=== PATIENT | male | born 1955 | race Caucasian/White ===

== ENCOUNTER 2019-03-14 05:38 | Observation (INO) | payer BC, OTHER ==
[2019-03-14] MEDS ORDERED: ASPIRIN 81 MG CHEWABLE TABLETS PO ONE ×2 (06:18→09:07)
[2019-03-14] MEDS ORDERED: ASPIRIN 81 MG CHEWABLE TABLETS ONE ×2 (06:20→10:23)
[2019-03-14] MEDS ORDERED: NITROGLYCERIN SUBLINGUAL 1/150 0.4 MG TAB SL ONE ×2 (06:48→08:16)
--- NOTE | 2019-03-14 06:53 | PDOC ---
Attending Attestation - Resident Resident Name: Jovany Durant - ED Attending Attestation I have performed the following: I have examined & evaluated the patient, The case was reviewed & discussed with the resident, I agree w/resident's findings & plan, Exceptions are as noted - HPI HPI: 03/14/19 07:16 See resident HPI - Physicial Exam PE: 03/14/19 07:16 Agree with documented exam - Medical Decision Making 03/14/19 07:16 Moderately concerning but atypical cp story HEART 5 before troponin Eval for ACS f/u labs ekg non-ischemic dispo per clinical course, will need admission for ACS eval
[2019-03-14] MEDS ORDERED: NITROGLYCERIN SUBLINGUAL 1/150 0.4 MG TAB ONE ×2 (07:00→08:19)
--- NOTE | 2019-03-14 07:04 | PDOC ---
History of Present Illness - General Chief Complaint: Chest Pain Stated Complaint: CHEST PAIN Time Seen by Provider: 03/14/19 06:07 - History of Present Illness Initial Comments: 03/14/19 06:51 HPI: 63 y/o M with hx of HTN, HLD, pre-DM, obesity presenting with chest pain that started 4.5 hrs ago. Pain is midsternal with radiation to BL costal margins. Pain woke him from sleep. Pain is 6/10 and constant. He has never has this in the past. He took an excedrin with no relief. He initially thought it was GI in nature and went to the bathroom to urinate and have a BM, he also took Tums. His symptoms did no improve. He also reports dry heaving nausea with no emesis as well as SOB by the time he go to bed and diaphoresis. Patient denies fever, chills, palpitations, TORO, LH, dizziness, abd pain, abd pain. He reports [place] in his father after the age of 60. PMHx: as noted above ROS: as noted SHx: Denies tobacco use; nightly wine use; no rec drugs Allergies: NKDA ROS: GENERAL/CONSTITUTIONAL: No fever or chills. No weakness. HEAD, EYES, EARS, NOSE AND THROAT: No change in vision. No ear pain or discharge. No sore throat. CARDIOVASCULAR: +chest pain and shortness of breath RESPIRATORY: No cough, wheezing, or hemoptysis. GASTROINTESTINAL: +nausea; no vomiting, diarrhea or constipation. GENITOURINARY: No dysuria, frequency, or change in urination. MUSCULOSKELETAL: No joint or muscle swelling or pain. No neck or back pain. SKIN: No rash NEUROLOGIC: No headache, vertigo, loss of consciousness, or change in strength/ sensation. ENDOCRINE: No increased thirst. No abnormal weight change HEMATOLOGIC/LYMPHATIC: No anemia, easy bleeding, or history of blood clots. ALLERGIC/IMMUNOLOGIC: No hives or skin allergy. PE: GENERAL: Awake, alert, and fully oriented, no acute distress HEAD: No signs of trauma, normocephalic, atraumatic EYES: EOMI, sclera anicteric, conjunctiva clear ENT: Auricles normal inspection, hearing grossly normal, nares patent, oropharynx clear without exudates. Moist mucosa NECK: Normal ROM, no lymphadenopathy LUNGS: No increased work of breathing, symmetrical chest rise, clear to auscultation bilaterally, no wheezes, crackles or rhonchi HEART: Regular rate, regular rhythm, normal S1 and S2, no murmur, peripheral pulses 2+ and equal bilaterally. ABDOMEN: Soft, obese, nontender, normoactive bowel sounds. No guarding, no rebound. No masses. No CVAT MUSCULOSKELETAL: Normal inspection, FROM NEUROLOGICAL: Cranial nerves II through XII grossly intact. Normal speech, normal gait, no focal sensorimotor deficits SKIN: Warm, Dry, normal turgor, no rashes or lesions noted Past History - Past Medical History Allergies/Adverse Reactions: Allergies Allergy/AdvReac Type Severity Reaction Status Date / Time No Known Allergies Allergy Verified 03/14/19 06:02 Home Medications: Ambulatory Orders Alpha Lipoic Acid 100 mg PO DAILY 08/15/17 Aspirin [[place] Aspirin] 81 mg PO DAILY 08/15/17 Atorvastatin Ca [Lipitor] 20 mg PO HS 08/15/17 Docusate Sodium [Colace] 100 mg PO HS 08/15/17 Hydrochlorothiazide [Hctz -] 25 mg PO DAILY 08/15/17 Lisinopril [Prinivil -] 40 mg PO DAILY 08/15/17 Multivitamin [One Daily] 1 each PO DAILY 08/15/17 Anemia: No Asthma: No Cancer: No Cardiac Disorders: No CVA: No COPD: No CHF: No Dementia: No Diabetes: No GI Disorders: No Disorders: No HTN: Yes Hypercholesterolemia: Yes Liver Disease: No Seizures: No Thyroid Disease: No - Surgical History Abdominal Surgery: No Appendectomy: No Cardiac Surgery: No Cholecystectomy: No Lung Surgery: No Neurologic Surgery: No Orthopedic Surgery: No - Psycho Social/Smoking Cessation Hx Smoking History: Never smoked Hx Alcohol Use: Yes (Social) Drug/Substance Use Hx: No Substance Use Type: None Hx Substance Use Treatment: No *Physical Exam - Vital Signs Last Vital Signs Temp Pulse Resp BP Pulse Ox 98.8 F 64 20 156/84 100 03/14/19 05:40 03/14/19 05:40 03/14/19 05:40 03/14/19 05:40 03/14/19 05:40 Heart Score/ECG Review - History History: Moderately suspicious - Electrocardiogram EKG: Non specific repolarization disturbance - Age Age: 45-65 - Risk Factors Risk Factors Heart Score: Yes Hx Hypercholesterolemia, Yes Hx Hypertension, Yes Hx Diabetes, Yes Hx Obesity Based on the list above the patient has:: >/=3 risk factors or Hx atherosclerotic disease - Troponin Troponin: </= normal limit - Score Heart Score - Total: 5 ED Treatment Course - RADIOLOGY Radiology Studies Ordered: Category Date Time Status CHEST PA & LAT [RAD] Stat Radiology 03/14/19 06:47 Ordered - Medications Given in the ED: ED Medications Discontinued Medications Generic Name Dose Route Start Last Admin Trade Name Christiano PRN Reason Stop Dose Admin Aspirin 324 mg 03/14/19 06:18 03/14/19 06:23 Asa - PO 03/14/19 06:19 324 mg ONCE ONE Administration Medical Decision Making - Medical Decision Making 03/14/19 07:04 63 y/o M with hx of HTN, HLD, pre-DM, obesity presenting with chest pain that started 4.5 hrs ago that started with nausea, diaphoresis, and SOB. BP 156/84, AF. PE unremarkable. will workup for acs -cbc, cmp, mg, phos, bnp, coags, cardiac profile, ekg, cxr -aspirin, nitro SL 03/14/19 07:05 will signout to AM team to followup labs and admit for ACS workup Heart score 5 Discharge - Discharge Information Problems reviewed: Yes Clinical Impression/Diagnosis: Chest pain Qualifiers: Chest pain type: unspecified Qualified Code(s): R07.9 - Chest pain, unspecified Condition: Fair - Follow up/Referral - Patient Discharge Instructions - Post Discharge Activity
[2019-03-14 07:12] LABS: BASO % 0.2 % (0-2.0); EOS % 0.4 % (0-4.5); HEMATOCRIT 44.7 % (35.4-49); HEMOGLOBIN 15.5 GM/dL (11.7-16.9); LYMPH % 12.6 % (8-40); MCH 31.3 pg (25.7-33.7); MCHC 34.6 g/dl (32.0-35.9); MEAN CELL VOLUME 90.4 fl (80-96); MEAN PLT VOLUME 8.2 fl (7.5-11.1); MONO % 4.8 % (3.8-10.2); PLATELET COUNT 227 K/MM3 (134-434); RBC 4.95 M/mm3 (4.00-5.60); WHITE BLOOD COUNT 10.8 K/mm3 (4.0-10.0)
[2019-03-14 07:31] LABS: INR 0.87 (0.83-1.09); PROTHROMBIN TIME (PATIENT) 10.3 SEC (9.7-13.0)
--- NOTE | 2019-03-14 07:33 | PDOC ---
*Physical Exam - Vital Signs Last Vital Signs Temp Pulse Resp BP Pulse Ox 98.8 F 64 20 156/84 100 03/14/19 05:40 03/14/19 05:40 03/14/19 05:40 03/14/19 05:40 03/14/19 05:40 <Becky Glass - Last Filed: 03/14/19 08:22> - Vital Signs Last Vital Signs Temp Pulse Resp BP Pulse Ox 98.8 F 64 20 156/84 100 03/14/19 05:40 03/14/19 05:40 03/14/19 05:40 03/14/19 05:40 03/14/19 05:40 - Physical Exam 03/14/19 07:30 63 yo M with HTN, HLD, pre-DM, and obesity presents to the emergency department with chest pain that started 4.5 hours ago. Per the patient, it is located in the midsternum with radiation to the bilateral costal margins. I received sign out from AM team. Pending labs <MiguelFranck - Last Filed: 03/14/19 08:53> ED Treatment Course - LABORATORY CBC & Chemistry Diagram: 03/14/19 06:50 03/14/19 06:50 - ADDITIONAL ORDERS Additional order review: Laboratory Results 03/14/19 03/14/19 03/14/19 06:50 06:50 06:50 PT with INR 10.30 INR 0.87 PTT (Actin FS) 35.3 Sodium 137 Potassium 3.7 Chloride 103 Carbon Dioxide 30 Anion Gap 4 L BUN 21.0 H Creatinine 1.1 Est GFR (CKD-EPI)AfAm 82.37 Est GFR (CKD-EPI)NonAf 71.07 Random Glucose 150 H Calcium 9.7 Magnesium 2.0 Total Bilirubin 0.5 AST 14 L ALT 30 Alkaline Phosphatase 57 Creatine Kinase 97 Troponin I 0.02 B-Natriuretic Peptide 60.1 Total Protein 7.2 Albumin 4.4 03/14/19 06:50 RBC 4.95 MCV 90.4 MCHC 34.6 RDW 14.0 MPV 8.2 Neutrophils % 82.0 Lymphocytes % 12.6 Monocytes % 4.8 Eosinophils % 0.4 Basophils % 0.2 - Medications Given in the ED: ED Medications Discontinued Medications Generic Name Dose Route Start Last Admin Trade Name Freq PRN Reason Stop Dose Admin Aspirin 324 mg 03/14/19 06:18 03/14/19 06:23 Asa - PO 03/14/19 06:19 324 mg ONCE ONE Administration Nitroglycerin 0.4 mg 03/14/19 06:48 03/14/19 07:05 Nitrostat - SL 03/14/19 06:49 0.4 mg ONCE ONE Administration <Becky Glass - Last Filed: 03/14/19 08:22> - LABORATORY CBC & Chemistry Diagram: 03/14/19 06:50 03/14/19 06:50 - ADDITIONAL ORDERS Additional order review: 03/14/19 06:50 RBC 4.95 MCV 90.4 MCHC 34.6 RDW 14.0 MPV 8.2 Neutrophils % 82.0 Lymphocytes % 12.6 Monocytes % 4.8 Eosinophils % 0.4 Basophils % 0.2 - Medications Given in the ED: ED Medications Discontinued Medications Generic Name Dose Route Start Last Admin Trade Name Freq PRN Reason Stop Dose Admin Aspirin 324 mg 03/14/19 06:18 03/14/19 06:23 Asa - PO 03/14/19 06:19 324 mg ONCE ONE Administration Nitroglycerin 0.4 mg 03/14/19 06:48 03/14/19 07:05 Nitrostat - SL 03/14/19 06:49 0.4 mg ONCE ONE Administration <Franck Rivera - Last Filed: 03/14/19 08:53> Medical Decision Making - Medical Decision Making Patient was signed out from Dr. Stiles at 7:00 AM. In summary this is a 63-year- old male with hypertension, hyperlipidemia and diabetes presenting with sternal chest pain, received nitro and aspirin with some relief of pain currently at 3/ 10. Laboratory results are unremarkable, troponin is negative, LFTs and lipase are unremarkable, limited bedside ultrasound gallbladder negative for stones or evidence of cholecystitis, no Childers sign is elicited so unlikely to be biliary etiology elevated heart score of 5 so will require observation telemetry for rule out ACS , stress testing, medical management and cardiology evaluation as inpatient. 03/14/19 08:22 <Becky Glass - Last Filed: 03/14/19 08:22> - Medical Decision Making 03/14/19 08:16 Patient reported mild relief of pain after nitro administration. will order another dose of nitroglycerin. <Franck Rivera - Last Filed: 03/14/19 08:53> Discharge <Becky Glass - Last Filed: 03/14/19 08:22> - Discharge Information Problems reviewed: Yes <Franck Rivera - Last Filed: 03/14/19 08:53> - Discharge Information Clinical Impression/Diagnosis: Chest pain Qualifiers: Chest pain type: unspecified Qualified Code(s): R07.9 - Chest pain, unspecified Condition: Fair - Follow up/Referral Referrals: ON STAFF,NOT [Primary Care Provider] - - Patient Discharge Instructions - Post Discharge Activity
[2019-03-14 07:34] LABS: ACTIVATED PTT 35.3 SECONDS (25.2-36.5)
[2019-03-14 07:46] LABS: ALBUMIN 4.4 g/dl (3.4-5.0); BILIRUBIN,TOTAL 0.5 mg/dL (0.2-1); CALCIUM 9.7 mg/dL (8.5-10.1); CREATININE 1.1 mg/dL (0.55-1.3); POTASSIUM 3.7 mmol/L (3.5-5.1); TOT PROT 7.2 g/dl (6.4-8.2)
[2019-03-14 07:51] LABS: N-TERMINAL BNP 60.1 pg/ml (5-125)
[2019-03-14] MEDS ORDERED: SODIUM CHLORIDE 1,000 ML IV SCH (09:15)
--- NOTE | 2019-03-14 09:24 | HP ---
CHIEF COMPLAINT: chest pain PCP: Dr. Casey Salas ([place]) HISTORY OF PRESENT ILLNESS: Pt. is 63 y.o. M w/ PMHx. of HTN, HLD, Pre-DM, Hx. of JOCELYN (not on CPAP) and obesity presents for chest pain that woke him up from sleep around 2AM. Pt. states that the pain was 6/10 in severity (now 5/10) ad is constant with continuos (not radiating) extension along bilateral ribs. Pt. denies anything other than the SL nitroglycerin that improved the pain. Pt. at home tried taking Excedrin, urinating, defecating, drinking water and taking TUMs with no relief. Pt. states this has never happened before and deines ever having a stress test. Pt. states he recently saw his PCP for a check up and was started on MEtformin for Pre-DM. Pt. did not recall is A1c. In the ER Pt. was given SL Nitroglycerin and ASA to some relief (3/10). Pt. endorses dry-heaving nausea at home associated with diaporesis for ~5min after waking up but has since resolved. Pt. endorsed SOB at this time as well which has since resolved. Pt. 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 Pt. endorses having the Flu vaccine this year. Pt. had a benign colonoscopy (only showed mild diverticulosis) last year. Pt. endorses feeling cold now and at bedside states that he normally never feels cold. Pt. denies any fevers, palpitations, abdominal pain, constipation or diarrhea. ER course was notable for: (1) EKG, CBC, CMP (2) POCUS -. Trop -, CXR - (3) ASA 324, SL Nitro x 2 Recent Travel: No PAST MEDICAL HISTORY: As above PAST SURGICAL HISTORY: Denies Social History: Smoking: Denies Alcohol: 1 glass of wine per night Drugs: Denies Allergies No Known Allergies Allergy (Verified 03/14/19 06:02) HOME MEDICATIONS: Home Medications Medication Instructions Recorded Alpha Lipoic Acid 100 mg PO DAILY 08/15/17 Aspirin [[place] Aspirin] 81 mg PO DAILY 08/15/17 Atorvastatin Ca [Lipitor] 20 mg PO HS 08/15/17 Docusate Sodium [Colace] 100 mg PO HS 08/15/17 Hydrochlorothiazide [Hctz -] 25 mg PO DAILY 08/15/17 Lisinopril [Prinivil -] 40 mg PO DAILY 08/15/17 Multivitamin [One Daily] 1 each PO DAILY 08/15/17 REVIEW OF SYSTEMS CONSTITUTIONAL: Absent: fever, chills, diaphoresis, generalized weakness, malaise, loss of appetite, weight change HEENT: Absent: rhinorrhea, nasal congestion, throat pain, throat swelling, difficulty swallowing, mouth swelling, ear pain, eye pain, visual changes CARDIOVASCULAR: Absent: chest pain, syncope, palpitations, irregular heart rate, lightheadedness , peripheral edema RESPIRATORY: Absent: cough, shortness of breath, dyspnea with exertion, orthopnea, wheezing, stridor, hemoptysis GASTROINTESTINAL: Absent: abdominal pain, abdominal distension, nausea, vomiting, diarrhea, constipation, melena, hematochezia GENITOURINARY: Absent: dysuria, frequency, urgency, hesitancy, hematuria, flank pain, genital pain MUSCULOSKELETAL: Absent: myalgia, arthralgia, joint swelling, back pain, neck pain SKIN: Absent: rash, itching, pallor HEMATOLOGIC/IMMUNOLOGIC: Absent: easy bleeding, easy bruising, lymphadenopathy, frequent infections ENDOCRINE: Absent: unexplained weight gain, unexplained weight loss, heat intolerance, cold intolerance NEUROLOGIC: Absent: headache, focal weakness or paresthesias, dizziness, unsteady gait, seizure, mental status changes, bladder or bowel incontinence PSYCHIATRIC: Absent: anxiety, depression, suicidal or homicidal ideation, hallucinations. PHYSICAL EXAMINATION Vital Signs - 24 hr 03/14/19 05:40 Temperature 98.8 F Pulse Rate 64 Respiratory 20 Rate Blood Pressure 156/84 O2 Sat by Pulse 100 Oximetry (%) GENERAL: Awake, alert, and fully oriented, in no acute distress. HEAD: Normal with no signs of trauma. EYES: Pupils equal, round and reactive to light, extraocular movements intact, sclera anicteric, conjunctiva clear. No lid lag. EARS, NOSE, THROAT: Ears normal, nares patent, oropharynx clear without exudates. Moist mucous membranes. NECK: Normal range of motion, supple without lymphadenopathy, JVD, or masses. LUNGS: Breath sounds equal, clear to auscultation bilaterally. No wheezes, and no crackles. No accessory muscle use. HEART: Regular rate and rhythm, normal S1 and S2 without murmur, rub or gallop. ABDOMEN: Soft, nontender, not distended, normoactive bowel sounds, no guarding, no rebound, no masses. No hepatomegaly or splenomegaly. MUSCULOSKELETAL: Normal range of motion at all joints. No bony deformities or tenderness. No CVA tenderness. UPPER EXTREMITIES: 2+ pulses, warm, well-perfused. No cyanosis. No clubbing. No peripheral edema. LOWER EXTREMITIES: 2+ pulses, warm, well-perfused. No calf tenderness. No peripheral edema. NEUROLOGICAL: Cranial nerves II-XII intact. Normal speech. Normal gait. PSYCHIATRIC: Cooperative. Good eye contact. Appropriate mood and affect. SKIN: Warm, dry, normal turgor, no rashes or lesions noted, normal capillary refill. Laboratory Results - last 24 hr 03/14/19 03/14/19 03/14/19 06:50 06:50 06:50 WBC 10.8 H RBC 4.95 Hgb 15.5 Hct 44.7 MCV 90.4 MCH 31.3 MCHC 34.6 RDW 14.0 Plt Count 227 MPV 8.2 Absolute Neuts (auto) 8.9 H Neutrophils % 82.0 Lymphocytes % 12.6 Monocytes % 4.8 Eosinophils % 0.4 Basophils % 0.2 Nucleated RBC % 0 PT with INR 10.30 INR 0.87 PTT (Actin FS) 35.3 Sodium Potassium Chloride Carbon Dioxide Anion Gap BUN Creatinine Est GFR (CKD-EPI)AfAm Est GFR (CKD-EPI)NonAf Random Glucose Calcium Magnesium Total Bilirubin AST ALT Alkaline Phosphatase Creatine Kinase 97 Troponin I 0.02 B-Natriuretic Peptide 60.1 Total Protein Albumin Lipase 134 03/14/19 06:50 WBC RBC Hgb Hct MCV MCH MCHC RDW Plt Count MPV Absolute Neuts (auto) Neutrophils % Lymphocytes % Monocytes % Eosinophils % Basophils % Nucleated RBC % PT with INR INR PTT (Actin FS) Sodium 137 Potassium 3.7 Chloride 103 Carbon Dioxide 30 Anion Gap 4 L BUN 21.0 H Creatinine 1.1 Est GFR (CKD-EPI)AfAm 82.37 Est GFR (CKD-EPI)NonAf 71.07 Random Glucose 150 H Calcium 9.7 Magnesium 2.0 Total Bilirubin 0.5 AST 14 L ALT 30 Alkaline Phosphatase 57 Creatine Kinase Troponin I B-Natriuretic Peptide Total Protein 7.2 Albumin 4.4 Lipase ASSESSMENT/PLAN: Pt. is 63 y.o. M w/ PMHx. of HTN, HLD, Pre-DM, and obesity presents for chest pain that woke him up from sleep around 2AM. #R/o ACS Trop -, will order repeat and trend EK bpm, NSR, left axis deviations, LVH, TWI in lead III, non-specific ST changes notably in V1, will order Repeat EKGs with each Troponin. f/u Echo as Pt. as LVH Cardiology consult to Dr. Georges appreciated, Pt. would benefit from stress testing BNP: 60.1 f/u TSH #HTN c/w HCTZ and Lisinopril #HLD c/w Lipitor and alpha lipoic acid f/u lipid panel #Pre-DM Hold Metformin start ISS ACHS BGMs ACHS f/u A1c #Hx. of JOCELYN Pulmonology Consult to Dr. Mora appreciated sleep screen ordered CPAP ordered Elevated hematorit may be a symptoms of JOCELYN, could be a component of dehydration as Pt. has isolated elevation in BUN as well. #FEN Gentle hydration, 1L NS @ 50 monitor electrolytes and replete as needed NPO, pending possible stress test #DVT Ppx. Hep SQ Visit type - Emergency Visit Emergency Visit: Yes ED Registration Date: 03/14/19 Care time: The patient presented to the Emergency Department on the above date and was hospitalized for further evaluation of their emergent condition. - New Patient This patient is new to me today: Yes Date on this admission: 03/14/19 - Critical Care Critical Care patient: No ATTENDING PHYSICIAN STATEMENT I saw and evaluated the patient. I reviewed the resident's note and discussed the case with the resident. I agree with the resident's findings and plan as documented. SUBJECTIVE: OBJECTIVE: ASSESSMENT AND PLAN:
[2019-03-14] MEDS ORDERED: ALPHA LIPOIC ACID 100 MG PO SCH (10:00)
[2019-03-14] MEDS ORDERED: HYDROCHLOROTHIAZIDE 25 MG TABLET (FP) PO SCH (10:00)
[2019-03-14] MEDS ORDERED: LISINOPRIL 20 MG TABLET (FP) PO SCH (10:00)
[2019-03-14] MEDS: HEPARIN NA (PORCINE) 5,000 UNITS/ML 1ML VIAL SQ SCH ×2 (10:00→18:30)
[2019-03-14] MEDS ORDERED: LISINOPRIL 20 MG TABLET (FP) ONE (10:23)
[2019-03-14] MEDS ORDERED: HYDROCHLOROTHIAZIDE 25 MG TABLET (FP) ONE (10:23)
[2019-03-14] MEDS ORDERED: HEPARIN NA (PORCINE) 5,000 UNITS/ML 1ML VIAL ONE ×2 (10:23→18:19)
[2019-03-14] MEDS ORDERED: KETOROLAC TROMETHAMINE 15 MG/ML VIAL IVPUSH PRN (10:33)
[2019-03-14] MEDS: INSULIN SLIDING SCALE (NOVOLOG) 1 VIAL SQ SCH ×2 (11:18→17:01)
--- NOTE | 2019-03-14 12:33 | ECHO ---
Name: HOUJAMES Exam:Adult Echocardiogram Study Date: 03/14/2019 12:01 PM Age: 63 yrs Reason For Study: r/o acs Height: 70 in Weight: 210 lb BSA: 2.1 m2 MMode/2D Measurements & Calculations IVSd: 1.3 cm Ao root diam: 3.3 cm LVIDd: 4.2 cm LA dimension: 4.7 cm LVIDs: 3.0 cm LVPWd: 1.1 cm EDV(Teich): 79.9 ml LVOT diam: 2.0 cm ESV(Teich): 36.4 ml LAV (MOD-bp): 52.3 ml Doppler Measurements & Calculations MV E max efren: 60.1 cm/sec Ao V2 max: 141.2 cm/sec MV A max efren: 66.9 cm/sec Ao max P.0 mmHg MV E/A: 0.90 AI P1/2t: 1076 msec MV dec time: 0.13 sec CONNOR(V,D): 2.3 cm2 AI max efren: 310.8 cm/sec LV V1 max P.5 mmHg AI max P.6 mmHg LV V1 max: 105.7 cm/sec AI dec slope: 84.6 cm/sec2 TR max efren: 211.7 cm/sec PA V2 max: 145.2 cm/sec TR max P.1 mmHg PA max P.4 mmHg Med Peak E' Efren: 5.9 cm/sec PI Vmax: 213.1 cm/sec Med E/e': 10.2 Lat Peak E' Efren: 10.6 cm/sec Lat E/e': 5.7 Left Ventricle Left ventricular systolic function is grossly normal. Ejection Fraction = 55-60%. Left Ventricular Fi lling pattern is normal for age. Right Ventricle The right ventricle is normal in size and function. Atria The left atrium is mildly dilated. Right atrial size is normal. Mitral Valve The mitral valve is normal in structure and function. There is no mitral valve stenosis. There is no mitral regurgitation noted. Tricuspid Valve The tricuspid valve is normal in structure and function. There is mild tricuspid regurgitation. Right ventricular systolic pressure is normal. Aortic Valve The aortic valve opens well. No hemodynamically significant valvular aortic stenosis. Mild aortic regurgitation. Pulmonic Valve The pulmonic valve is not well seen, but is grossly normal. There is no pulmonic valvular stenosis. M ild pulmonic valvular regurgitation. Great Vessels The aortic root is normal size. Pericardium/Pleura There is no pericardial effusion. Interpretation Summary Left ventricular systolic function is grossly normal. Ejection Fraction = 55-60%. The left atrium is mildly dilated. There is mild tricuspid regurgitation. Mild aortic regurgitation. There is no pericardial effusion. MD Garcia *Dipesh 03/14/2019 12:33 PM
--- NOTE | 2019-03-14 13:19 | EKG ---
Test Reason : Blood Pressure : / mmHG Vent. Rate : 070 BPM Atrial Rate : 070 BPM P-R Int : 192 ms QRS Dur : 092 ms QT Int : 388 ms P-R-T Axes : 085 -32 -17 degrees QTc Int : 419 ms NORMAL SINUS RHYTHM LEFT AXIS DEVIATION VOLTAGE CRITERIA FOR LEFT VENTRICULAR HYPERTROPHY NONSPECIFIC ST ABNORMALITY ABNORMAL ECG NO PREVIOUS ECGS AVAILABLE Confirmed by VIRGINIE ALLEN MD ([id number]) on 03/14/2019 1:18:44 PM Referred By: Confirmed By:VIRGINIE ALLEN MD
--- NOTE | 2019-03-14 15:43 | CON.CARD ---
Cardiology Consult (text) - Consultation Consultation Note: cc: cp hpi: 63 m hx htn, hld, borderline dm, here with cp. Cp started this am, achey pain across right and left chest, no radiation, mild pain. Mild nausea. No sob palps dizzy loc pnd orthopnea le edema. No hx hrt dz, no prior cp, no angina. CP resolved, feels better now. pmh: per hpi psh: no social: no tob fam: no premature cad, scd ros: per hpi; all others nl meds: Home Medications Medication Instructions Recorded Alpha Lipoic Acid 100 mg PO DAILY 08/15/17 Aspirin [[place] Aspirin] 81 mg PO DAILY 08/15/17 Atorvastatin Ca [Lipitor] 20 mg PO HS 08/15/17 Docusate Sodium [Colace] 100 mg PO HS 08/15/17 Hydrochlorothiazide [Hctz -] 25 mg PO DAILY 08/15/17 Multivitamin [One Daily] 1 each PO DAILY 08/15/17 Lisinopril 20 mg PO DAILY 03/14/19 metFORMIN HCL [Metformin HCl ER] 1,000 mg PO BID 03/14/19 pe: Vital Signs Period Temp Pulse Resp BP Sys/[place] Pulse Ox Last 24 Hr 97.5 F-98.8 F 64-68 20-24 141-156/66-84 97-100 nad no jvd rrr s1s2 no mrg cta bl nl eff aao3 no le e/c/c abd nt nd pos bs no jaundice diaphoresis pos dp pt no carotid bruits Laboratory Last Values WBC 10.8 K/mm3 (4.0-10.0) H 03/14/19 06:50 RBC 4.95 M/mm3 (4.00-5.60) 03/14/19 06:50 Hgb 15.5 GM/dL (11.7-16.9) 03/14/19 06:50 Hct 44.7 % (35.4-49) 03/14/19 06:50 MCV 90.4 fl (80-96) 03/14/19 06:50 MCH 31.3 pg (25.7-33.7) 03/14/19 06:50 MCHC 34.6 g/dl (32.0-35.9) 03/14/19 06:50 RDW 14.0 % (11.9-15.9) 03/14/19 06:50 Plt Count 227 K/MM3 (134-434) 03/14/19 06:50 MPV 8.2 fl (7.5-11.1) 03/14/19 06:50 Absolute Neuts (auto) 8.9 K/mm3 (1.5-8.0) H 03/14/19 06:50 Neutrophils % 82.0 % (42.8-82.8) 03/14/19 06:50 Lymphocytes % 12.6 % (8-40) 03/14/19 06:50 Monocytes % 4.8 % (3.8-10.2) 03/14/19 06:50 Eosinophils % 0.4 % (0-4.5) 03/14/19 06:50 Basophils % 0.2 % (0-2.0) 03/14/19 06:50 Nucleated RBC % 0 % (0-0) 03/14/19 06:50 PT with INR 10.30 SEC (9.7-13.0) 03/14/19 06:50 INR 0.87 (0.83-1.09) 03/14/19 06:50 PTT (Actin FS) 35.3 SECONDS (25.2-36.5) 03/14/19 06:50 Sodium 137 mmol/L (136-145) 03/14/19 06:50 Potassium 3.7 mmol/L (3.5-5.1) 03/14/19 06:50 Chloride 103 mmol/L (98-107) 03/14/19 06:50 Carbon Dioxide 30 mmol/L (21-32) 03/14/19 06:50 Anion Gap 4 MMOL/L (8-16) L 03/14/19 06:50 BUN 21.0 mg/dL (7-18) H 03/14/19 06:50 Creatinine 1.1 mg/dL (0.55-1.3) 03/14/19 06:50 Est GFR (CKD-EPI)AfAm 82.37 03/14/19 06:50 Est GFR (CKD-EPI)NonAf 71.07 03/14/19 06:50 POC Glucometer 120 UNITS (80-120) 03/14/19 11:15 Random Glucose 150 mg/dL (74-106) H 03/14/19 06:50 Hemoglobin A1c % 5.2 % (4.2-6.3) 03/14/19 06:50 Calcium 9.7 mg/dL (8.5-10.1) 03/14/19 06:50 Magnesium 2.0 mg/dL (1.8-2.4) 03/14/19 06:50 Total Bilirubin 0.5 mg/dL (0.2-1) 03/14/19 06:50 AST 14 U/L (15-37) L 03/14/19 06:50 ALT 30 U/L (13-61) 03/14/19 06:50 Alkaline Phosphatase 57 U/L (45-117) 03/14/19 06:50 Creatine Kinase 97 U/L (26-308) 03/14/19 06:50 Troponin I 0.02 ng/ml (0.00-0.05) 03/14/19 06:50 B-Natriuretic Peptide 60.1 pg/ml (5-125) 03/14/19 06:50 Total Protein 7.2 g/dl (6.4-8.2) 03/14/19 06:50 Albumin 4.4 g/dl (3.4-5.0) 03/14/19 06:50 Triglycerides 78 mg/dL (0-150) 03/14/19 06:50 Cholesterol 126 mg/dL (50-200) 03/14/19 06:50 Total LDL Cholesterol 77 mg/dL (5-100) 03/14/19 06:50 HDL Cholesterol 40 mg/dL (40-60) 03/14/19 06:50 Lipase 134 U/L (73-393) 03/14/19 06:50 TSH 1.62 uIU/ml (0.358-3.74) 03/14/19 06:50 ecg: sr nl intervals no ischemic changes echo 02/2019: nl lv/rv, mild lae, mild tr, mild ar cxr: no chf a/p: 63 m hx htn, hld, borderline dm, here with cp. cp: -resolved, atypical features -ecg and echo unremarkable -trop neg x1. Would check one more trop, if remains normal then ok for dc from cardiac pov, should f/u in office next week for outpt stress testing. htn: -cont home meds hld: -cont statin
[2019-03-14] MEDS ORDERED: DOCUSATE SODIUM 100 MG CAPSULE (FP) PO SCH (22:00)
[2019-03-14] MEDS ORDERED: ATORVASTATIN CA 20 MG TABLET (FP) PO SCH (22:00)
--- NOTE | 2019-03-14 23:03 | PN ---
Teaching Attending Note Name of Resident: Carlos Bright ATTENDING PHYSICIAN STATEMENT I saw and evaluated the patient. I reviewed the resident's note and discussed the case with the resident. I agree with the resident's findings and plan as documented. 63 y.o. M w/ PMHx. of HTN, HLD, Pre-DM, Hx. of JOCELYN (not on CPAP) and obesity presents for chest pain that woke him up from sleep around 2AM. Pt. states that the pain was 6/10 in severity (now 5/10) and is constant with continuous (not radiating) extension along bilateral ribs, increases with deep inspiration and coughing. Patient denies similar pain in the past. Denies palpitations, dizziness, LOC, syncope. Endorses overall being in good shape, ET 3-4 flights without stopping, denies CP on exertion. PE VSS GA anxious, AAOx3, lying in stretcher, speaking in full sentences HEENT NC/AT, EOMI, no JVD, neck supple Chest CTAB, no crackles or wheezing CVS S1, S2+, RRR, no m/r/g Abd Soft, obese, NT, ND, no guarding, BS+ Ext NO LE edema, no calf tenderness, moves all 4 extremities Vital Signs - 24 hr 03/14/19 03/14/19 03/14/19 05:40 08:00 09:41 Temperature 98.8 F 98.2 F 97.5 F L Pulse Rate 64 Pulse Rate [ 77 68 Left Radial] Respiratory 20 20 24 H Rate Blood Pressure 156/84 Blood Pressure 140/80 141/66 [Left Arm] O2 Sat by Pulse 100 97 97 Oximetry (%) 03/14/19 03/14/19 03/14/19 14:30 16:30 20:30 Temperature 98 F 98.4 F Pulse Rate Pulse Rate [ 74 76 94 H Left Radial] Respiratory 20 20 20 Rate Blood Pressure Blood Pressure 132/73 138/76 179/90 H [Left Arm] O2 Sat by Pulse 98 97 97 Oximetry (%) Laboratory Results - last 24 hr 03/14/19 03/14/19 03/14/19 06:50 06:50 06:50 WBC 10.8 H RBC 4.95 Hgb 15.5 Hct 44.7 MCV 90.4 MCH 31.3 MCHC 34.6 RDW 14.0 Plt Count 227 MPV 8.2 Absolute Neuts (auto) 8.9 H Neutrophils % 82.0 Lymphocytes % 12.6 Monocytes % 4.8 Eosinophils % 0.4 Basophils % 0.2 Nucleated RBC % 0 PT with INR 10.30 INR 0.87 PTT (Actin FS) 35.3 Sodium Potassium Chloride Carbon Dioxide Anion Gap BUN Creatinine Est GFR (CKD-EPI)AfAm Est GFR (CKD-EPI)NonAf POC Glucometer Random Glucose Hemoglobin A1c % Calcium Magnesium Total Bilirubin AST ALT Alkaline Phosphatase Creatine Kinase 97 Troponin I 0.02 B-Natriuretic Peptide 60.1 Total Protein Albumin Triglycerides Cholesterol Total LDL Cholesterol HDL Cholesterol Lipase 134 TSH 03/14/19 03/14/19 03/14/19 06:50 06:50 11:15 WBC RBC Hgb Hct MCV MCH MCHC RDW Plt Count MPV Absolute Neuts (auto) Neutrophils % Lymphocytes % Monocytes % Eosinophils % Basophils % Nucleated RBC % PT with INR INR PTT (Actin FS) Sodium 137 Potassium 3.7 Chloride 103 Carbon Dioxide 30 Anion Gap 4 L BUN 21.0 H Creatinine 1.1 Est GFR (CKD-EPI)AfAm 82.37 Est GFR (CKD-EPI)NonAf 71.07 POC Glucometer 120 Random Glucose 150 H Hemoglobin A1c % 5.2 Calcium 9.7 Magnesium 2.0 Total Bilirubin 0.5 AST 14 L ALT 30 Alkaline Phosphatase 57 Creatine Kinase Troponin I B-Natriuretic Peptide Total Protein 7.2 Albumin 4.4 Triglycerides 78 Cholesterol 126 Total LDL Cholesterol 77 HDL Cholesterol 40 Lipase TSH 1.62 03/14/19 03/14/19 15:13 16:56 WBC RBC Hgb Hct MCV MCH MCHC RDW Plt Count MPV Absolute Neuts (auto) Neutrophils % Lymphocytes % Monocytes % Eosinophils % Basophils % Nucleated RBC % PT with INR INR PTT (Actin FS) Sodium Potassium Chloride Carbon Dioxide Anion Gap BUN Creatinine Est GFR (CKD-EPI)AfAm Est GFR (CKD-EPI)NonAf POC Glucometer 94 Random Glucose Hemoglobin A1c % Calcium Magnesium Total Bilirubin AST ALT Alkaline Phosphatase Creatine Kinase Troponin I 0.02 B-Natriuretic Peptide Total Protein Albumin Triglycerides Cholesterol Total LDL Cholesterol HDL Cholesterol Lipase TSH Home Medications Medication Instructions Recorded Alpha Lipoic Acid 100 mg PO DAILY 08/15/17 Aspirin [[place] Aspirin] 81 mg PO DAILY 08/15/17 Atorvastatin Ca [Lipitor] 20 mg PO HS 08/15/17 Docusate Sodium [Colace] 100 mg PO HS 08/15/17 Hydrochlorothiazide [Hctz -] 25 mg PO DAILY 08/15/17 Multivitamin [One Daily] 1 each PO DAILY 08/15/17 Lisinopril 20 mg PO DAILY 03/14/19 metFORMIN HCL [Metformin HCl ER] 1,000 mg PO BID 03/14/19 Current Medications Generic Name Dose Route Start Last Admin Trade Name Freq PRN Reason Stop Dose Admin Aspirin 81 mg 03/15/19 10:00 Asa - PO DAILY [facility] Atorvastatin Calcium 20 mg 03/14/19 22:00 Lipitor - PO HS REJI Docusate Sodium 100 mg 03/14/19 22:00 Colace - PO HS REJI Heparin Sodium (Porcine) 5,000 unit 03/14/19 10:00 03/14/19 18:30 Heparin - SQ 5,000 unit Q8H-IV [facility] Administration Hydrochlorothiazide 25 mg 03/14/19 22:00 Hctz - PO DAILY [facility] Insulin Aspart 1 vial 03/14/19 11:00 03/14/19 17:01 Novolog Vial Sliding Scale - SQ Not Given ACHS [facility] Protocol Ketorolac Tromethamine 15 mg 03/14/19 10:33 Toradol Injection - IVPUSH 03/19/19 10:32 Q6H PRN PAIN LEVEL 6-10 Lisinopril 20 mg 03/14/19 22:00 Prinivil PO DAILY [facility] Non-Formulary Medication 100 mg 03/14/19 10:00 Alpha Lipoic Acid [Alpha Lipoic Acid] PO DAILY [facility] A/P: 63 M h/o JOCELYN not on CPAP, HTN, HLD, obesity presents with atypical CP since the morning, constant, not consistent with cardiac-type chest pain. Chest pain Likely MSK related, ?costochondritis due to constant nature, pleuritic, worsened w/ cough and deep inspiration Obtain trops/EKG x2, ASA started, cont. high intensity statin, obtain Echo Cardiology cs: Dr. Lugo HTN Restart home BP meds HLD Restart statin JOCELYN not compliant w/ CPAP Pulmonary evaluation to establish care, pt. endorses history of moderate JOCELYN many years ago, now it is likely it has increased in severity due to worsening EDS and snoring. Would be reasonable to have pulmonary evaluate patient to setup CPAP titration study. DVT ppx: Lovenox SC Admit to tele
[2019-03-14] MEDS: HYDROCHLOROTHIAZIDE 25 MG TABLET (FP) PO SCH (23:54)
[2019-03-14] MEDS: LISINOPRIL 20 MG TABLET (FP) PO SCH (23:54)
[2019-03-15] MEDS: INSULIN SLIDING SCALE (NOVOLOG) 1 VIAL SQ SCH ×3 (00:01→11:38)
[2019-03-15 00:17] VITALS: BMI 36.6
[2019-03-15] MEDS: HEPARIN NA (PORCINE) 5,000 UNITS/ML 1ML VIAL SQ SCH ×2 (01:39→09:41)
[2019-03-15 07:06] VITALS: TEMP 97.9
[2019-03-15 07:44] LABS: BASO % 0.2 % (0-2.0); EOS % 0.9 % (0-4.5); HEMATOCRIT 40.5 % (35.4-49); HEMOGLOBIN 14.1 GM/dL (11.7-16.9); LYMPH % 19.5 % (8-40); MCH 31.2 pg (25.7-33.7); MCHC 34.8 g/dl (32.0-35.9); MEAN CELL VOLUME 89.6 fl (80-96); MEAN PLT VOLUME 8.1 fl (7.5-11.1); MONO % 9.7 % (3.8-10.2); NEUT % 69.7 % (42.8-82.8); PLATELET COUNT 171 K/MM3 (134-434); RBC 4.53 M/mm3 (4.00-5.60); RDW 13.5 % (11.9-15.9); WHITE BLOOD COUNT 12.4 K/mm3 (4.0-10.0)
[2019-03-15 08:04] VITALS: BP 149/82; PULSE 83
[2019-03-15 08:11] LABS: BLOOD UREA NITROGEN 13.8 mg/dL (7-18); CALCIUM 9.2 mg/dL (8.5-10.1); CREATININE 1.1 mg/dL (0.55-1.3); MAGNESIUM 1.9 mg/dL (1.8-2.4); PHOSPHOROUS 3.4 mg/dL (2.5-4.9); POTASSIUM 3.9 mmol/L (3.5-5.1)
[2019-03-15 08:30] LABS: INR 1.1 (0.83-1.09)
[2019-03-15] MEDS: LISINOPRIL 20 MG TABLET (FP) PO SCH (09:41)
[2019-03-15] MEDS: HYDROCHLOROTHIAZIDE 25 MG TABLET (FP) PO SCH (09:41)
[2019-03-15] MEDS ORDERED: ASPIRIN 81 MG CHEWABLE TABLETS PO SCH (10:00)
[2019-03-15] MEDS ORDERED: LISINOPRIL 20 MG TABLET (FP) PO SCH (10:21)
--- NOTE | 2019-03-15 11:46 | PN ---
Progress Note (short form) - Note Progress Note: s: no cp sob palps dizzy Current Medications Generic Name Dose Route Start Last Admin Trade Name Christiano PRN Reason Stop Dose Admin Aspirin 81 mg 03/15/19 10:00 03/15/19 09:41 Asa - PO 81 mg DAILY REJI Administration Atorvastatin Calcium 20 mg 03/14/19 22:00 03/14/19 23:54 Lipitor - PO 20 mg HS REJI Administration Docusate Sodium 100 mg 03/14/19 22:00 03/14/19 23:54 Colace - PO 100 mg HS REJI Administration Famotidine 20 mg 03/16/19 10:00 Pepcid - PO DAILY REJI Heparin Sodium (Porcine) 5,000 unit 03/14/19 10:00 03/15/19 09:41 Heparin - SQ 5,000 unit Q8H-IV REJI Administration Hydrochlorothiazide 25 mg 03/14/19 22:00 03/15/19 09:41 Hctz - PO 25 mg DAILY REJI Administration Insulin Aspart 1 vial 03/14/19 11:00 03/15/19 11:38 Novolog Vial Sliding Scale - SQ Not Given ACHS [facility] Protocol Lisinopril 40 mg 03/15/19 10:21 Prinivil PO DAILY REJI Vital Signs Period Temp Pulse Resp BP Sys/[place] Pulse Ox Last 24 Hr 97.9 F-99.4 F 74-94 18-20 132-179/73-90 94-98 nad no jvd rrr s1s2 no mrg cta bl nl eff aao3 no le e/c/c abd nt nd pos bs no jaundice diaphoresis CBC, BMP 03/15/19 07:16 03/15/19 07:16 ecg: sr nl intervals no ischemic changes echo 02/2019: nl lv/rv, mild lae, mild tr, mild ar cxr: no chf tele: sr a/p: 63 m hx htn, hld, borderline dm, here with cp. cp: -resolved, atypical features -ecg and echo unremarkable -trop neg x2. pt can f/u in office next week for outpt stress testing. htn: -cont home meds hld: -cont statin
--- NOTE | 2019-03-15 12:30 | DS ---
Physical Exam: 63 y.o. M w/ PMHx. of HTN, HLD, Pre-DM, Hx. of JOCELYN (not on CPAP) and obesity presents for chest pain that woke him up from sleep around 2AM. Patient's chest pain presented as continuous, starting in R side of chest expanding to L side, subsided after doses of Toradol. Cardiology consulted, Echo/EKG/troponins reviewed and were unremarkable for ACS or acute ischemia. Patient cleared by cardiology for outpatient follow up for stress test. PE VSS GA comfortable, AAOx3, lying in stretcher, speaking in full sentences HEENT NC/AT, EOMI, no JVD, neck supple Chest CTAB, no crackles or wheezing CVS S1, S2+, RRR, no m/r/g Abd Soft, obese, NT, ND, no guarding, BS+ Ext NO LE edema, no calf tenderness, moves all 4 extremities Last Vital Signs Temp Pulse Resp BP Pulse Ox 97.9 F 83 18 149/82 96 03/15/19 08:00 03/15/19 08:00 03/15/19 08:04 03/15/19 08:00 03/15/19 08:04 Vital Signs Period Temp Pulse Resp BP Sys/[place] Pulse Ox Last 24 Hr 97.9 F-99.4 F 74-94 18-20 132-179/73-90 94-98 LABS Laboratory Results - last 24 hr 03/14/19 03/14/19 03/14/19 06:50 06:50 15:13 WBC RBC Hgb Hct MCV MCH MCHC RDW Plt Count MPV Absolute Neuts (auto) Neutrophils % Lymphocytes % Monocytes % Eosinophils % Basophils % Nucleated RBC % PT with INR INR Sodium 137 Potassium 3.7 Chloride 103 Carbon Dioxide 30 Anion Gap 4 L BUN 21.0 H Creatinine 1.1 Est GFR (CKD-EPI)AfAm 82.37 Est GFR (CKD-EPI)NonAf 71.07 POC Glucometer Random Glucose 150 H Hemoglobin A1c % 5.2 Calcium 9.7 Phosphorus Magnesium 2.0 Total Bilirubin 0.5 AST 14 L ALT 30 Alkaline Phosphatase 57 Troponin I 0.02 Total Protein 7.2 Albumin 4.4 Triglycerides 78 Cholesterol 126 Total LDL Cholesterol 77 HDL Cholesterol 40 TSH 1.62 03/14/19 03/14/19 03/15/19 16:56 23:52 06:24 WBC RBC Hgb Hct MCV MCH MCHC RDW Plt Count MPV Absolute Neuts (auto) Neutrophils % Lymphocytes % Monocytes % Eosinophils % Basophils % Nucleated RBC % PT with INR INR Sodium Potassium Chloride Carbon Dioxide Anion Gap BUN Creatinine Est GFR (CKD-EPI)AfAm Est GFR (CKD-EPI)NonAf POC Glucometer 94 138 131 Random Glucose Hemoglobin A1c % Calcium Phosphorus Magnesium Total Bilirubin AST ALT Alkaline Phosphatase Troponin I Total Protein Albumin Triglycerides Cholesterol Total LDL Cholesterol HDL Cholesterol TSH 03/15/19 03/15/19 03/15/19 07:16 07:16 07:16 WBC 12.4 H RBC 4.53 Hgb 14.1 Hct 40.5 MCV 89.6 MCH 31.2 MCHC 34.8 RDW 13.5 Plt Count 171 D MPV 8.1 Absolute Neuts (auto) 8.6 H Neutrophils % 69.7 Lymphocytes % 19.5 D Monocytes % 9.7 D Eosinophils % 0.9 D Basophils % 0.2 Nucleated RBC % 0 PT with INR 13.00 INR 1.10 H Sodium 138 Potassium 3.9 Chloride 102 Carbon Dioxide 33 H Anion Gap 4 L BUN 13.8 Creatinine 1.1 Est GFR (CKD-EPI)AfAm 82.37 Est GFR (CKD-EPI)NonAf 71.07 POC Glucometer Random Glucose 121 H Hemoglobin A1c % Calcium 9.2 Phosphorus 3.4 Magnesium 1.9 Total Bilirubin AST ALT Alkaline Phosphatase Troponin I Total Protein Albumin Triglycerides Cholesterol Total LDL Cholesterol HDL Cholesterol TSH 03/15/19 11:35 WBC RBC Hgb Hct MCV MCH MCHC RDW Plt Count MPV Absolute Neuts (auto) Neutrophils % Lymphocytes % Monocytes % Eosinophils % Basophils % Nucleated RBC % PT with INR INR Sodium Potassium Chloride Carbon Dioxide Anion Gap BUN Creatinine Est GFR (CKD-EPI)AfAm Est GFR (CKD-EPI)NonAf POC Glucometer 123 Random Glucose Hemoglobin A1c % Calcium Phosphorus Magnesium Total Bilirubin AST ALT Alkaline Phosphatase Troponin I Total Protein Albumin Triglycerides Cholesterol Total LDL Cholesterol HDL Cholesterol TSH Home Medications Medication Instructions Recorded Alpha Lipoic Acid 100 mg PO DAILY 08/15/17 Aspirin [[place] Aspirin] 81 mg PO DAILY 08/15/17 Atorvastatin Ca [Lipitor] 20 mg PO HS 08/15/17 Docusate Sodium [Colace] 100 mg PO HS 08/15/17 Hydrochlorothiazide [Hctz -] 25 mg PO DAILY 06/20/18 Multivitamin [One Daily] 1 each PO DAILY 08/15/17 metFORMIN HCL [Metformin HCl ER] 1,000 mg PO BID 03/14/19 Lisinopril [Prinivil -] 40 mg PO DAILY #30 tablet 03/15/19 Chest pain likely MSK in origin Echo/EKG/trops unremarkable for ischemia Patient cleared by cardiology for outpatient follow up for stress testing return to ED if symptoms return HTN not controlled increased Lisinopril to 40mg daily advised weight loss, diet and exercise follow with PCP 1 week Date of Admission:03/14/19 Date of Discharge: 03/15/19 Discharge medications: Lisinopril 40mg daily, (discontinue Lisinopril 20mg daily) Continue all other home medications Minutes to complete discharge: 30 Discharge Summary Problems reviewed: Yes Reason For Visit: CHEST PAIN,RULE OUT ACUTE MYOCARDIAL INFARCTION Condition: Good - Instructions Diet, Activity, Other Instructions: You were admitted and treated for your chest pain. You may return to your regular diet and activity as tolerated. 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 If you experience chest pain, shortness of breath, syncope, dizziness or vision changes please go to the nearest emergency room. Referrals: Efra Lugo MD [Staff Physician] - ON STAFF,NOT [Primary Care Provider] - Disposition: HOME - Home Medications Comprehensive Discharge Medication List: Ambulatory Orders Alpha Lipoic Acid 100 mg PO DAILY 08/15/17 Aspirin [[place] Aspirin] 81 mg PO DAILY 08/15/17 Atorvastatin Ca [Lipitor] 20 mg PO HS 08/15/17 Docusate Sodium [Colace] 100 mg PO HS 08/15/17 Hydrochlorothiazide [Hctz -] 25 mg PO DAILY 08/15/17 Multivitamin [One Daily] 1 each PO DAILY 08/15/17 metFORMIN HCL [Metformin HCl ER] 1,000 mg PO BID 03/14/19 Lisinopril [Prinivil -] 40 mg PO DAILY #30 tablet 03/15/19 This patient is new to me today: No Emergency Visit: Yes ED Registration Date: 03/14/19 Care time: The patient presented to the Emergency Department on the above date and was hospitalized for further evaluation of their emergent condition. Critical Care patient: No - Discharge Referral Referred to [facility] Med P.C.: No
--- NOTE | 2019-03-15 13:15 | EKG ---
Test Reason : Blood Pressure : / mmHG Vent. Rate : 078 BPM Atrial Rate : 078 BPM P-R Int : 180 ms QRS Dur : 096 ms QT Int : 388 ms P-R-T Axes : 031 -30 009 degrees QTc Int : 442 ms NORMAL SINUS RHYTHM LEFT AXIS DEVIATION INCOMPLETE RIGHT BUNDLE BRANCH BLOCK MODERATE VOLTAGE CRITERIA FOR LVH, MAY BE NORMAL VARIANT ABNORMAL ECG WHEN COMPARED WITH ECG OF 14-MAR-2019 05:55, INCOMPLETE RIGHT BUNDLE BRANCH BLOCK IS NOW PRESENT Confirmed by ROSE BOJORQUEZ MD ([id number]) on 03/15/2019 1:15:07 PM Referred By: Confirmed By:ROSE BOJORQUEZ MD
--- NOTE | 2019-03-15 13:46 | CON.PULM ---
Consult Consult Specialty:: PULMONARY Referred by:: Dr Lucio Reason for Consultation:: JOCELYN - History of Present Illness Chief Complaint: chest pain History of Present Illness: 63yo male with h/o HTN, DM, hyperlipidemia, h/o JOCELYN who was admitted with chest pain. Planned for outpt stress test with negative cardiac enzymes. Consulted for evaluation of sleep apnea. He was diagnosed with JOCELYN "many years ago" but was never able to tolerate CPAP therapy. He does use a dental device which lessens his snoring. He is a loud snorer and has had witnessed apneas. He wakes up at night to urinate, occasionally wakes up with a dry mouth. He does feel rested in the AM and does not experience excessive daytime somnolence. - History Source History Provided By: Patient, Medical Record Limitations to Obtaining History: No Limitations - Past Medical History Cardio/Vascular: Yes: HTN, Hyperlipdemia - Alcohol/Substance Use Hx Alcohol Use: Yes (1 GLASS WINE DAILY) - Smoking History Smoking history: Never smoked Home Medications - Allergies Allergies/Adverse Reactions: Allergies Allergy/AdvReac Type Severity Reaction Status Date / Time No Known Allergies Allergy Verified 03/14/19 06:02 - Home Medications Home Medications: Ambulatory Orders Alpha Lipoic Acid 100 mg PO DAILY 08/15/17 Aspirin [[place] Aspirin] 81 mg PO DAILY 08/15/17 Atorvastatin Ca [Lipitor] 20 mg PO HS 08/15/17 Docusate Sodium [Colace] 100 mg PO HS 08/15/17 Hydrochlorothiazide [Hctz -] 25 mg PO DAILY 08/15/17 Multivitamin [One Daily] 1 each PO DAILY 08/15/17 metFORMIN HCL [Metformin HCl ER] 1,000 mg PO BID 03/14/19 Lisinopril [Prinivil -] 40 mg PO DAILY #30 tablet 03/15/19 Review of Systems - Review of Systems Constitutional: denies: Chills, Fever Eyes: denies: Recent Change in Vision HENT: denies: Nasal Congestion, Throat Pain Neck: denies: Stiffness, Tenderness Cardiovascular: reports: Chest Pain, Shortness of Breath. denies: Edema, Palpitations Respiratory: denies: Cough, Hemoptysis, SOB, Wheezing Gastrointestinal: denies: Abdominal Pain, Nausea, Vomiting Genitourinary: denies: Dysuria Neurological: denies: Dizziness, Headache Endocrine: denies: Unexplained Weight Loss Physical Exam Vital Sings: Vital Signs Temperature 97.9 F 03/15/19 08:00 Pulse Rate 83 03/15/19 08:00 Respiratory Rate 18 03/15/19 08:04 Blood Pressure 149/82 03/15/19 08:00 O2 Sat by Pulse Oximetry (%) 96 03/15/19 08:04 Constitutional: Yes: Calm Eyes: Yes: Conjunctiva Clear, EOM Intact HENT: Yes: Atraumatic, Normocephalic Neck: Yes: Supple, Trachea Midline Cardiovascular: Yes: Regular Rate and Rhythm Respiratory: Yes: Diminished (decreased breath sounds at the bases) ...Clubbing: No Gastrointestinal: Yes: Normal Bowel Sounds, Soft. No: Tenderness Edema: No Neurological: Yes: Alert, Oriented Labs: CBC, BMP 03/15/19 07:16 03/15/19 07:16 Imaging - Results Chest X-ray: Report Reviewed, Image Reviewed (right basilar atelectasis) Problem List - Problems (1) Chest pain Code(s): R07.9 - CHEST PAIN, UNSPECIFIED Qualifiers: Chest pain type: unspecified Qualified Code(s): R07.9 - Chest pain, unspecified Assessment/Plan Atypical Chest Pain Obstructive Sleep Apnea HTN Hyperlipidemia pre-DM - pt interested to reconsidering CPAP therapy - gave contact information and he will follow up Thank you for this consult Chepe Mora MD
[2019-03-16] MEDS ORDERED: FAMOTIDINE 20 MG TABLET PO SCH (10:00)
== END 2019-03-15 13:40 | disposition home or self-care (01) ==
LOC: JER 05:38 → JERBED 06:16 → J4W 23:41
PROC: BF42ZZZ Ultrasonography of Gallbladder (ICD-10-PCS; principal; 2019-03-14)
PROC: 3E0337Z Introduction of Electrolytic and Water Balance Substance into Peripheral Vein, Percutaneous Approach (ICD-10-PCS; 2019-03-14)
DX: R07.89 Other chest pain (principal)
CPT/HCPCS: 36415; 71045-TC-FY; 76705-TC; 80048; 80053; 80061; 82550; 82962; 83036; 83690; 83721; 83735; 83880; 84100; 84443; 84484; 85025; 85610; 85730; 93005; 93010; 93306-TC; 99285-25; G0378; J1644; J7030